=== PATIENT | female | born 1975 | race Caucasian/White ===

== ENCOUNTER 2016-11-17 18:53 | Emergency (ER) | payer SELFPAY ==
[2016-11-17 21:35] VITALS: BP 151/86
[2016-11-17 21:57] LABS: NEG OBC UR NEG; POS OBC UR POS
[2016-11-17 21:59] LABS: BILIRUBIN,URINE NEGATIVE (NEG); GLUCOSE,URINE NEGATIVE (NEG); NITRITE,URINE NEGATIVE (NEG); PROTEIN,URINE NEGATIVE (NEG-TRACE); UROBILINOGEN,URINE 0.2 mg/dL (0.2 mg/dL)
[2016-11-17 22:06] LABS: BACTERIA,URINE 0 /HPF (0-FEW); RBC,URINE OCC /HPF (0-2); SQUAMOUS EPITHELIAL CELL,UR FEW /LPF; WBC,URINE OCC /HPF (0-4)
[2016-11-17 22:13] LABS: CALCIUM 9.8 mg/dL (8.5-10.1); CREATININE 1.6 mg/dL (0.6-1.0); GFR 35.3; POTASSIUM 3.9 mmol/L (3.5-5.1)
[2016-11-17] MEDS ORDERED: FAMOTIDINE 20 MG/2 ML VIAL IVP ONE (22:15)
[2016-11-17] MEDS ORDERED: FENTANYL PF 100 MCG/2 ML VIAL. IV ONE (22:15)
--- NOTE | 2016-11-17 22:52 | RAD ---
PROCEDURE CT of the abdomen and pelvis without contrast HISTORY Left flank pain. Noncontrast images. Exposure: One or more of the following individualized dose reduction techniques were utilized for this exam: 1. Automated exposure control. 2. Adjustment of the mA and/or kV according to patient size. 3. Use of iterative reconstruction technique. COMPARISON None FINDINGS Lung bases are clear. No evidence of pneumoperitoneum. No evidence of urolithiasis or urinary tract obstruction on the left. The right kidney is absent. Examination of solid viscera, GI tract and vascular structures is compromised by the noncontrast technique. Liver demonstrates no obvious abnormality. Spleen mildly enlarged measuring 14 centimeters. Pancreas appears unremarkable. No evidence of left adrenal mass. The right adrenal is not seen. Gallbladder surgically absent. No aortic aneurysm. No evidence of bowel obstruction. Small hiatal hernia. No obvious pericolonic inflammation. No evidence of acute appendicitis. The appendix is probably visualized and normal. The urinary bladder is grossly unremarkable although not opacified. There is a small soft tissue density in the left pelvis, just below the left urinary bladder of uncertain etiology. This measures about 4 centimeters. No significant enlargement of lymph nodes. No ascites. IMPRESSION 1. No evidence of left-sided urolithiasis or obstruction. 2. No acute findings in the abdomen or pelvis. 3. There appears to be a soft tissue mass in the left pelvis just below the left urinary bladder. Etiology uncertain. Measures about 4 centimeters. Consider follow-up evaluation with CT pelvis with intravenous and oral contrast or pelvic ultrasound. 4. Mild splenomegaly. Electronically signed by: Xavier Box MD (Nov 17, 2016 22:51:43)
--- NOTE | 2016-11-17 22:59 | PHYS DOC ---
Past Medical History Past Medical History: Hypothyroid, Kidney Infection, Kidney Stone, UTI, Other Additional Past Medical Histor: CKD, R kidney removal d/t cancer Past Surgical History: Cancer Surgery, Cholecystectomy, Other Additional Past Surgical Histo: kidney stone removal, Alcohol Use: None Drug Use: None Adult General Chief Complaint Chief Complaint: FLANK PAIN HPI HPI Patient is a 41 year old female who presents with 3 weeks of intermittent flank pain radiating through her upper abdomen and the left lower abdomen that is exactly like prior kidney stone pain. Pain is minutes of dull pain with brief sharp pains. She states she gets nausea with the pain. She denies fever or chills, dysuria, hematuria, diarrhea, constipation, vaginal bleeding or discharge, cough, dyspnea, chest pain. She is making normal urine amount. States she gets her usual care at [facility], but this was closer to her home. Review of Systems Review of Systems Constitutional: Denies fever or chills [] Eyes: Denies change in visual acuity, redness, or eye pain [] HENT: Denies nasal congestion or sore throat [] Respiratory: Denies cough or shortness of breath [] Cardiovascular: No additional information not addressed in HPI [] GI: Denies bloody stools or diarrhea [] : Denies dysuria or hematuria [] Musculoskeletal: Denies back pain or joint pain [] Integument: Denies rash or skin lesions [] Neurologic: Denies headache, focal weakness or sensory changes [] Endocrine: Denies polyuria or polydipsia [] Current Medications Current Medications Current Medications Medications (Trade) Dose Ordered Sig/Amparo Start Time Stop Time Status Last Admin Dose Admin Famotidine (Pepcid) 20 mg 1X ONCE 11/17/16 22:15 11/17/16 22:16 DC 11/17/16 22:30 20 MG Fentanyl Citrate (Fentanyl 2ml Vial) 75 mcg 1X ONCE 11/17/16 22:15 11/17/16 22:16 DC 11/17/16 22:35 75 MCG Allergies Allergies Allergies Coded Allergies Type Severity Reaction Last Updated Verified morphine Allergy Intermediate itching 11/17/16 Yes Physical Exam Physical Exam Constitutional: Well developed, well nourished, no acute distress, non-toxic appearance. [] HENT: Normocephalic, atraumatic, bilateral external ears normal, oropharynx moist, nose normal. [] Eyes: PERRLA, EOMI. [] Neck: Normal range of motion, supple. [] Cardiovascular:Heart rate regular rhythm [] Lungs & Thorax: Bilateral breath sounds clear to auscultation [] Abdomen: Bowel sounds normal, soft, no tenderness. [] Skin: Warm, dry, no erythema, no rash. [] Back: No tenderness, minimal left CVA tenderness. [] Extremities: No tenderness, ROM intact, no edema. [] Neurologic: Alert and oriented X 3, normal motor function, normal sensory function, no focal deficits noted. [] Psychologic: Affect normal, judgement normal, mood normal. [] Current Patient Data Vital Signs Vital Signs Date Time Temp Pulse Resp B/P Pulse Ox O2 Delivery O2 Flow Rate FiO2 11/17/16 22:35 20 96 Room Air 11/17/16 21:35 98.1 79 151/86 98.1 Lab Values Laboratory Tests Test 11/17/16 19:00 11/17/16 21:40 Urine Collection Type Unknown Urine Color Yellow Urine Clarity Clear Urine pH 7.0 Urine Specific [place] <=1.005 Urine Protein Negativemg/dL (NEG-TRACE) Urine Glucose (UA) Negativemg/dL (NEG) Urine Ketones (Stick) Negativemg/dL (NEG) Urine Blood Negative (NEG) Urine Nitrite Negative (NEG) Urine Bilirubin Negative (NEG) Urine Urobilinogen Dipstick 0.2mg/dL (0.2 mg/dL) Urine Leukocyte Esterase Negative (NEG) Urine RBC Occ/HPF (0-2) Urine WBC Occ/HPF (0-4) Urine Squamous Epithelial Cells Few/LPF Urine Bacteria 0/HPF (0-FEW) Urine Mucus Slight/LPF Urine Test Negative (NEG) Sodium Level 141mmol/L (136-145) Potassium Level 3.9mmol/L (3.5-5.1) Chloride Level 104mmol/L (98-107) Carbon Dioxide Level 25mmol/L (21-32) Anion Gap 12 (6-14) Blood Urea Nitrogen 18mg/dL (7-20) Creatinine 1.6mg/dL (0.6-1.0) H Estimated GFR (Cockcroft-Gault) 35.3 Glucose Level 91mg/dL (70-99) Calcium Level 9.8mg/dL (8.5-10.1) Laboratory Tests 11/17/16 21:40 Radiology/Procedures Radiology/Procedures CT abdomen and pelvis without contrast IMPRESSION 1. No evidence of left-sided urolithiasis or obstruction. 2. No acute findings in the abdomen or pelvis. 3. There appears to be a soft tissue mass in the left pelvis just below the left urinary bladder. Etiology uncertain. Measures about 4 centimeters. Consider follow-up evaluation with CT pelvis with intravenous and oral contrast or pelvic ultrasound. 4. Mild splenomegaly. Electronically signed by: Xavier Box MD (Nov 17, 2016 22:51:43) Course & Med Decision Making Course & Med Decision Making Pertinent Labs and Imaging studies reviewed. (See chart for details) Workup is unremarkable. She is feeling well and would like to go home. Return precautions given. She understands and agrees with plan. Dragon Disclaimer Dragon Disclaimer This electronic medical record was generated, in whole or in part, using a voice recognition dictation system. Departure Departure Impression: Primary Impression: Left flank pain Disposition: HOME, SELF-CARE Condition: STABLE Referrals: JULIUS FORD MD (PCP) Patient Instructions: Flank Pain, [id number] Additional Instructions: Follow-up with your primary care doctor. Return for any concerns. Moe HERNANDEZ MD Nov 17, 2016 22:59
== END 2016-11-17 23:37 | disposition home or self-care (01) ==
LOC: ER 18:53
DX: R10.12 Left upper quadrant pain (principal); R10.32 Left lower quadrant pain; R11.0 Nausea; E03.9 Hypothyroidism, unspecified; N18.9 Chronic kidney disease, unspecified; Z87.442 Personal history of urinary calculi; Z90.5 Acquired absence of kidney; Z88.5 Allergy status to narcotic agent; Z90.49 Acquired absence of other specified parts of digestive tract
CPT/HCPCS: 36415; 74176; 80048; 81001; 81025; 96374; 96375; 99285; J3010; S0028